=== PATIENT | female | born 1985 | race African-American/Black ===

== ENCOUNTER 2016-10-04 15:02 | Emergency (ER) | payer OTHER ==
[2016-10-04 15:08] VITALS: BP 127/75; TEMP 98; BMI 24.7
[2016-10-04] MEDS ORDERED: KETOROLAC TROMETHAMINE 60 MG/2 ML VIAL IM ONE (15:52)
[2016-10-04] MEDS ORDERED: KETOROLAC TROMETHAMINE 60 MG/2 ML VIAL ONE (15:53)
--- NOTE | 2016-10-04 16:24 | PDOC ---
History of Present Illness - General Chief Complaint: Injury Stated Complaint: FALL/ PAIN Time Seen by Provider: 10/04/16 15:39 - History of Present Illness Initial Comments: 10/04/16 16:19 CHIEF COMPLAINT: fall HISTORY OF PRESENT ILLNESS: 31 yo F presents to fast [facility]TT[facility] s/p fall. Patient states that she fell down the stairs yesterday and is experience "pain everywhere today." She reports pain to her legs and bilateral hands, but states she is able to walk and she "just wanted to make sure I got seen." She denies any LOC, blurry vision, slurred speech, difficulty swallowing. PAST MEDICAL HISTORY: Denies past medical history FAMILY HISTORY: Denies SOCIAL HISTORY: Denies tobacco, alcohol, illicit drug use. SURGICAL HISTORY: Denies ALLERGIES: No known drug allergies REVIEW OF SYSTEMS General/Constitutional: Denies fever or chills. Denies weakness, weight change. HEENT: Denies change in vision. Denies ear pain or discharge. Denies sore throat. Cardiovascular: Denies chest pain or shortness of breath. Respiratory: Denies cough, wheezing, or hemoptysis. Gastrointestinal: Denies nausea, vomiting, diarrhea or constipation. Denies rectal bleeding. Genitourinary: Denies dysuria, frequency, or change in urination. Musculoskeletal: "My legs hurt, my hands hurt, and my back hurts a little too." Skin and breasts: Denies rash or easy bruising. PHYSICAL EXAM General Appearance: Well-appearing, appropriately dressed. No apparent distress. HEENT: EOMI, PERRLA, normal ENT inspection, normal voice, TMs normal, pharynx normal. No conjunctival pallor. No photophobia, scleral icterus. Neck: No midline tenderness to cervical spine. Supple. Trachea midline. No tenderness, rigidity, carotid bruit, stridor, lymphadenopathy, or thyromegaly. Respiratory/Chest: Lungs CTAB. Cardiovascular: RRR. S1, S2. Vascular Pulses: Dorsalis-Pedis (R): 2+, Dorsalis-Pedis (L): 2+ Musculoskeletal/Extremities: Mild erythema to b/l thumbs. No midline tenderness to lumbar or thoracic spine. FROM of all extremities, normal capillary refill. Pelvis Stable. No tenderness to extremities, pedal edema, swelling, erythema or deformity. Integumentary: Appropriate color, dry, warm. No cyanosis, erythema, jaundice or rash Neurologic: talent acquisition partner II-XII intact. Fully oriented, alert. Appropriate mood/affect. Motor strength 5/5. No appreciable EOM palsy, facial droop or sensory deficit. Past History - Past Medical History Allergies/Adverse Reactions: Allergies Allergy/AdvReac Type Severity Reaction Status Date / Time No Known Allergies Allergy Verified 12/22/15 10:47 Home Medications: Ambulatory Orders Cyclobenzaprine HCl [Flexeril -] 5 mg PO HS #5 tablet 10/04/16 Naproxen 250 mg PO BID #14 tablet 10/04/16 Thyroid Disease: Yes Other medical history: iud - Reproductive History (#): 2 Para: 0 - Psycho/Social/Smoking Cessation Hx Anxiety: No Suicidal Ideation: No Smoking History: Current some day smoker Have you smoked in the past 12 months: No Number of Cigarettes Smoked Daily: 1 Information on smoking cessation initiated: No Hx Alcohol Use: Yes Drug/Substance Use Hx: Yes Substance Use Type: None *Physical Exam - Vital Signs Last Vital Signs Temp Pulse Resp BP Pulse Ox 98.0 F 110 H 16 127/75 97 10/04/16 15:04 10/04/16 15:04 10/04/16 15:04 10/04/16 15:04 10/04/16 15:04 ED Treatment Course - Medications Given in the ED: ED Medications Discontinued Medications Generic Name Dose Route Start Last Admin Trade Name Freq PRN Reason Stop Dose Admin Ketorolac Tromethamine 60 mg 10/04/16 15:52 10/04/16 15:56 Toradol Injection - IM 10/04/16 15:53 60 mg ONCE ONE Administration Medical Decision Making - Medical Decision Making 10/05/16 14:13 31 yo F presents to fast track s/p fall. Patient has mild erythema to b/l thumbs, no swelling appreciable. FROM to all extremities. -60 mg Toradol -Cyclobenzaprine and naproxen rx sent to pharmacy Advised patient to take medication as prescribed and follow up with orthopedics if symptoms persist. Advised patient of signs and symptoms for return to ED. Patient verbalized understanding and agrees to plan. *DC/Admit/Observation/Transfer Diagnosis at time of Disposition: Musculoskeletal pain - Discharge Dispostion Disposition: HOME Condition at time of disposition: Improved Admit: No - Prescriptions Prescriptions: Cyclobenzaprine HCl [Flexeril -] 5 mg PO HS #5 tablet Naproxen 250 mg PO BID #14 tablet - Referrals Referrals: Ray Sweeney MD [Primary Care Provider] - Kayden aFbian MD [Staff Physician] - - Patient Instructions Printed Discharge Instructions: DI for Whiplash, DI for Musculoskeletal Pain Additional Instructions: Please take medications as prescribed. Do not drive or operate machinery while taking cyclobenzaprine. If your symptoms persist for longer than one week, please follow up with orthopedics. If you experience any weakness, loss of sensation, numbness, or tingling of your extremities, or any loss of bowel or bladder function, please return to the ER. - Post Discharge Activity Work/School Note: Back to Work
[2016-10-04 16:29] VITALS: PULSE 95
== END 2016-10-04 16:29 | disposition home or self-care (01) ==
LOC: JER 15:02 → JERFT 15:02
PROC: 3E0233Z Introduction of Anti-inflammatory into Muscle, Percutaneous Approach (ICD-10-PCS; principal; 2016-10-04)
DX: M79.1 Myalgia (principal)
CPT/HCPCS: 96372; 99281-25

== ENCOUNTER 2019-10-11 21:25 | Emergency (ER) | payer OTHER ==
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
[2019-10-11 21:40] VITALS: BP 108/71; PULSE 102; TEMP 99.1; BMI 22.8
[2019-10-11] MEDS ORDERED: ACETAMINOPHEN 500 MG TABLET (FP) PO ONE (21:59)
--- NOTE | 2019-10-11 22:04 | PDOC ---
*Physical Exam - Vital Signs Last Vital Signs Temp Pulse Resp BP Pulse Ox 99.1 F 102 H 20 108/71 98 10/11/19 21:27 10/11/19 21:27 10/11/19 21:27 10/11/19 21:27 10/11/19 21:27 Medical Decision Making - Medical Decision Making 10/11/19 22:04 Patient seen by the advanced practice provider under my supervision. Ancillary testing reviewed as necessary. I agree with plan as outlined by the advanced practice provider. Discharge - Discharge Information Problems reviewed: Yes Clinical Impression/Diagnosis: Head injury Qualifiers: Encounter type: initial encounter Qualified Code(s): S09.90XA - Unspecified injury of head, initial encounter - Follow up/Referral - Patient Discharge Instructions - Post Discharge Activity
[2019-10-11] MEDS ORDERED: ACETAMINOPHEN 500 MG TABLET (FP) ONE (22:06)
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
== END 2019-10-12 02:09 | disposition home or self-care (01) ==
LOC: JER 21:25
DX: S09.90XA Unspecified injury of head, initial encounter (principal); S06.0X0A Concussion without loss of consciousness, initial encounter
CPT/HCPCS: 70450-TC; 70486-TC; 72125-TC; 84703; 99285-25

== ENCOUNTER 2020-03-06 18:13 | Emergency (ER) | payer OTHER ==
[2020-03-06 18:22] VITALS: BP 146/78; PULSE 79; TEMP 98.3; BMI 22.8
[2020-03-06] MEDS ORDERED: IBUPROFEN 600 MG TABLET (FP) PO ONE ×2 (18:46→18:47)
[2020-03-06] MEDS ORDERED: ACETAMINOPHEN 500 MG TABLET (FP) PO ONE (18:46)
[2020-03-06] MEDS ORDERED: ACETAMINOPHEN 500 MG TABLET (FP) ONE (18:47)
== END 2020-03-06 18:50 | disposition home or self-care (01) ==
LOC: JERFT 18:13
DX: G44.319 Acute post-traumatic headache, not intractable (principal)
CPT/HCPCS: 99284-25

== ENCOUNTER 2020-05-26 12:33 | Emergency (ER) | payer OTHER ==
[2020-05-26 12:37] VITALS: BP 127/75; PULSE 96; TEMP 97.3; BMI 24.5
[2020-05-26] MEDS ORDERED: CYCLOBENZAPRINE HCL 10 MG TABLET (FP) PO ONE (13:23)
[2020-05-26] MEDS ORDERED: KETOROLAC TROMETHAMINE 60 MG/2 ML VIAL IM ONE (13:23)
[2020-05-26] MEDS ORDERED: KETOROLAC TROMETHAMINE 60 MG/2 ML VIAL ONE (13:28)
[2020-05-26] MEDS ORDERED: CYCLOBENZAPRINE HCL 10 MG TABLET (FP) ONE (13:28)
== END 2020-05-26 13:36 | disposition home or self-care (01) ==
LOC: JER 12:33 → JERFT 12:33
PROC: 3E0233Z Introduction of Anti-inflammatory into Muscle, Percutaneous Approach (ICD-10-PCS; principal; 2020-05-26)
DX: M54.6 Pain in thoracic spine (principal); M54.2 Cervicalgia
CPT/HCPCS: 99284-25

== ENCOUNTER 2021-08-15 04:07 | Day surgery (SDC) | payer OTHER ==
[2021-08-12 16:31] VITALS: BMI 23.8
[2021-08-15] MEDS ORDERED: LIDOCAINE 1%/EPI 1:100000 (20 ML MULTI DOSE VIAL) ONE (07:20)
[2021-08-15] MEDS ORDERED: ROCURONIUM BROMIDE 50 MG/5 ML SYRINGE ONE (07:45)
[2021-08-15] MEDS ORDERED: MIDAZOLAM HCL 2 MG/2 ML SINGLE DOSE VIAL ONE ×3 (07:45→10:28)
[2021-08-15] MEDS ORDERED: PROPOFOL 20 ML ONE (07:45)
[2021-08-15] MEDS ORDERED: LIDOCAINE 1%/EPI 1:100000 (20 ML MULTI DOSE VIAL) IJ ONE ×3 (07:49→08:31)
[2021-08-15] MEDS ORDERED: DEXAMETHASONE SOD PHOSPHATE 4 MG/1 ML VIAL ONE (08:22)
[2021-08-15] MEDS ORDERED: ceFAZolin SODIUM 1 GM VIAL IVPB ONE (08:24)
[2021-08-15] MEDS ORDERED: ceFAZolin SODIUM 1 GM VIAL ONE (08:24)
[2021-08-15] MEDS ORDERED: OXYMETAZOLINE 0.05% NASAL SOLUTION 15 ML BOTTLE NS ONE (08:26)
[2021-08-15] MEDS ORDERED: oxyCODONE HCL 5 MG TABLET PO PRN (10:32)
[2021-08-15] MEDS ORDERED: ONDANSETRON 4 MG/2 ML VIAL IVPUSH PRN (10:32)
[2021-08-15] MEDS ORDERED: MIDAZOLAM HCL 2 MG/2 ML SINGLE DOSE VIAL IVPUSH ONE (10:32)
[2021-08-15] MEDS ORDERED: LACTATED RINGERS SOLUTION 1,000 ML IV SCH (10:45)
[2021-08-15 12:55] VITALS: BP 138/95; PULSE 87; TEMP 97.1
== END 2021-08-15 12:56 | disposition home or self-care (01) ==
LOC: JASU-SURG 04:07
PROVIDERS: ATTEND Otolaryngology
PROC: 099Q8ZZ Drainage of Right Maxillary Sinus, Via Natural or Artificial Opening Endoscopic (ICD-10-PCS; 2021-08-15)
PROC: 09SM0ZZ Reposition Nasal Septum, Open Approach (ICD-10-PCS; 2021-08-15)
PROC: 099R8ZZ Drainage of Left Maxillary Sinus, Via Natural or Artificial Opening Endoscopic (ICD-10-PCS; principal; 2021-08-15 08:00)
DX: J32.8 Other chronic sinusitis (principal); J34.2 Deviated nasal septum; J34.3 Hypertrophy of nasal turbinates; R09.81 Nasal congestion
CPT/HCPCS: 81025; 88302-TC; 94760

== ENCOUNTER 2021-08-17 14:03 | Emergency (ER) | payer OTHER ==
[2021-08-17 14:34] VITALS: BP 116/79; PULSE 85; BMI 23.8
== END 2021-08-17 14:59 | disposition home or self-care (01) ==
LOC: JERFT 14:03 → JER 14:03 → JERFT 14:59
DX: Z48.00 Encounter for change or removal of nonsurgical wound dressing (principal)
CPT/HCPCS: 99281-25

== ENCOUNTER 2022-10-01 18:18 | Emergency (ER) | payer OTHER ==
[2022-10-01 18:39] VITALS: BP 121/70; PULSE 94; RESP 17; TEMP 99.2; BMI 22.4
== END 2022-10-01 19:17 | disposition home or self-care (01) ==
LOC: JERFT 18:18
DX: R51.9 Headache, unspecified (principal); M54.2 Cervicalgia; Y04.0XXA Assault by unarmed brawl or fight, initial encounter; Y92.119 Unspecified place in children's home and orphanage as the place of occurrence of the external cause; Y99.0 Civilian activity done for income or pay
CPT/HCPCS: 99282-25

== ENCOUNTER 2024-04-21 21:26 | Emergency (ER) | payer OTHER ==
[2024-04-21 21:34] VITALS: BP 120/82; PULSE 97; RESP 20; TEMP 98.2; BMI 22.8
[2024-04-21] MEDS ORDERED: METHOCARBAMOL 500 MG TABLET PO ONE (22:25)
[2024-04-21] MEDS ORDERED: KETOROLAC TROMETHAMINE 30 MG/1 ML VIAL IM ONE (22:25)
[2024-04-21] MEDS ORDERED: ACETAMINOPHEN 500 MG TABLET (FP) ONE (22:43)
[2024-04-21] MEDS ORDERED: METHOCARBAMOL 500 MG TABLET ONE (22:43)
[2024-04-21] MEDS ORDERED: LIDOCAINE 4% PATCH TP ONE (22:43)
[2024-04-21] MEDS: METHOCARBAMOL 500 MG TABLET PO ONE (22:50)
[2024-04-21] MEDS: LIDOCAINE 5% TOPICAL PATCH TP ONE (22:50)
[2024-04-21] MEDS: ACETAMINOPHEN 500 MG TABLET (FP) PO ONE (22:50)
== END 2024-04-21 22:51 | disposition home or self-care (01) ==
LOC: JERFT 21:26
DX: M79.10 Myalgia, unspecified site (principal); V89.2XXA Person injured in unspecified motor-vehicle accident, traffic, initial encounter; Y92.410 Unspecified street and highway as the place of occurrence of the external cause
CPT/HCPCS: 99283-25

== ENCOUNTER 2024-04-23 15:27 | Emergency (ER) | payer OTHER ==
[2024-04-23 15:40] VITALS: BP 120/68; PULSE 91; RESP 18; TEMP 98.2; BMI 22.8
[2024-04-23] MEDS ORDERED: KETOROLAC TROMETHAMINE 30 MG/1 ML VIAL ONE (16:38)
[2024-04-23] MEDS ORDERED: diazePAM 2 MG TABLET ONE (16:38)
[2024-04-23] MEDS ORDERED: ACETAMINOPHEN 500 MG TABLET (FP) ONE (16:38)
[2024-04-23] MEDS: ACETAMINOPHEN 500 MG TABLET (FP) PO ONE (16:51)
[2024-04-23] MEDS: KETOROLAC TROMETHAMINE 30 MG/1 ML VIAL IM ONE (16:51)
[2024-04-23] MEDS: diazePAM 2 MG TABLET PO ONE (16:51)
== END 2024-04-23 18:02 | disposition home or self-care (01) ==
LOC: JERFT 15:27
PROC: 3E0233Z Introduction of Anti-inflammatory into Muscle, Percutaneous Approach (ICD-10-PCS; principal; 2024-04-23)
DX: M62.838 Other muscle spasm (principal); M54.2 Cervicalgia
CPT/HCPCS: 99284-25